=== PATIENT | female | born 1955 | race Caucasian/White ===

== ENCOUNTER 2019-05-28 21:26 | Emergency (ER) | payer MEDICARE ==
[2019-05-28 21:42] VITALS: BP 133/61
[2019-05-28] MEDS ORDERED: Gentamicin 0.3% OPHTH.SOLN* 5 ML BTL BOTH EYES ONE (21:49)
[2019-05-28] MEDS ORDERED: Ciprofloxacin 0.3% OPTH.SOL* BTL BOTH EYES ONE (21:53)
--- NOTE | 2019-05-28 21:53 | UC ---
Eye Complaint HPI - HPI Summary HPI Summary: Pt presents with c/o gradual worsening of bilateral eye redness, green/yellow discharge and tenderness X 3 days. - History of Current Complaint Chief Complaint: UCEye Stated Complaint: RIGHT EYE COMPLAINT Time Seen by Provider: 05/28/19 21:43 Hx Obtained From: Patient ?: No Onset/Duration: Gradual Onset, Lasting Days, Still Present, Worse Since - onset Timing: Constant Severity Initially: Mild Severity Currently: Mild Pain Intensity: 5 Associated Signs And Symptoms: Positive: Photophobia, Drainage (Purulent) - Risk Factors Penetrating Injury Risk Factor: Negative Globe Rupture Risk Factors: Negative Acute Glaucoma Risk Factors: Negative Optic Artery Occlusion Risk Factors: Negative - Allergies/Home Medications Allergies/Adverse Reactions: Allergies Allergy/AdvReac Type Severity Reaction Status Date / Time amoxicillin [From Augmentin] Allergy Rash Verified 05/28/19 21:43 celecoxib [From Celebrex] Allergy Difficulty Verified 05/28/19 21:43 Breathing clavulanic acid Allergy Rash Verified 05/28/19 21:43 [From Augmentin] methotrexate Allergy Rash Verified 05/28/19 21:43 Home Medications: Home Medications Apremilast [Otezla] 30 mg PO BID 05/28/19 [History Confirmed 05/28/19] PMH/Surg Hx/FS Hx/Imm Hx Previously Healthy: Yes - Surgical History Surgical History: Yes Surgery Procedure, Year, and Place: [facility]. Left adrenalectomy - Family History Known Family History: Positive: Cardiac Disease - Social History Occupation: Retired Lives: With Family Alcohol Use: Rare Substance Use Type: None Smoking Status (MU): Never Smoked Tobacco Have You Smoked in the Last Year: No Review of Systems All Other Systems Reviewed And Are Negative: Yes Constitutional: Positive: Negative Skin: Positive: Negative Eyes: Positive: Drainage, Eye Redness ENT: Positive: Negative Respiratory: Positive: Negative Cardiovascular: Positive: Negative Gastrointestinal: Positive: Negative Genitourinary: Positive: Negative Motor: Positive: Negative Neurovascular: Positive: Negative Musculoskeletal: Positive: Negative Neurological: Positive: Negative Psychological: Positive: Negative Is Patient Immunocompromised?: No Physical Exam Triage Information Reviewed: Yes Appearance: Well-Appearing Vital Signs: Initial Vital Signs Temp 99.2 F 05/28/19 21:36 Pulse 66 05/28/19 21:36 Resp 16 05/28/19 21:36 BP 133/61 05/28/19 21:36 Pulse Ox 98 05/28/19 21:36 Vital Signs Reviewed: Yes Eyes: Positive: Conjunctiva Inflamed, Discharge ENT Exam: Normal Dental Exam: Normal Neck exam: Normal Respiratory Exam: Normal Respiratory: Positive: No respiratory distress Musculoskeletal Exam: Normal Neurological Exam: Normal Psychological Exam: Normal Skin Exam: Normal Eye Complaint Course/Dx - Differential Dx/Diagnosis Differential Diagnosis/HQI/PQRI: Conjunctivitis, Corneal Abrasion Provider Diagnosis: Conjunctivitis Discharge - Sign-Out/Discharge Documenting (check all that apply): Patient Departure All imaging exams completed and their final reports reviewed: No Studies - Discharge Plan Condition: Stable Disposition: HOME Patient Education Materials: Conjunctivitis (ED) Referrals: Onofre Gupta MD [Primary Care Provider] - If Needed - Billing Disposition and Condition Condition: STABLE Disposition: Home
== END 2019-05-28 22:01 | disposition home or self-care (01) ==
LOC: UCCORT 21:26
DX: H10.9 Unspecified conjunctivitis (principal)
CPT/HCPCS: 99212; A9270-GY; G0463